=== PATIENT | female | born 1995 | race Caucasian/White ===

== ENCOUNTER 2019-09-11 12:51 | Emergency (ER) | payer SELFPAY ==
[~2019-09-11] VITALS: Ht 170.2 cm; Wt 56.7 kg
[2019-09-11 14:51] VITALS: BP 129/62
[2019-09-11 14:55] LABS: Urine Bacteria FEW /hpf (None Seen); Urine Blood Negative /uL (Negative); Urine Mucus FEW (None Seen); Urine Specific Gravity 1.019 (1.001-1.035); Urine WBC 24 /hpf (0 - 5)
== END 2019-09-11 16:45 | disposition home or self-care (01) ==
LOC: ER 12:56
DX: O26.851 Spotting complicating pregnancy, first trimester (principal); O23.41 Unspecified infection of urinary tract in pregnancy, first trimester; Z3A.11 11 weeks gestation of pregnancy
CPT/HCPCS: 36415; 76801; 81001; 84702

== ENCOUNTER 2021-06-08 22:57 | Emergency (ER) | payer MEDICAID ==
[~2021-06-08] VITALS: Ht 162.6 cm; Wt 75.3 kg
[2021-06-09 00:11] LABS: Basophils # (auto) 0 10 ^3/uL (0-0.2); Basophils % (auto) 0.3 % (0.0-2.0); Eosinophils # (auto) 0 10 ^3/uL (0-0.8); Hematocrit 42.9 % (36.0-46.0); Hemoglobin 14.8 g/dL (12.2-16.2); Lymphocytes # (auto) 1.2 10 ^3/uL (0.4-5.4); Lymphocytes % (auto) 9.9 % (10.0-50.0); Mean Corpuscular Hemoglobin 29.7 pg (28.0-32.0); Mean Corpuscular Hgb Conc. 34.5 g/dL (32.0-36.0); Monocytes # (auto) 0.3 10 ^3/uL (0-1.3); Monocytes % (auto) 2.5 % (0.0-12.0); Neutrophils # (auto) 10.6 10 ^3/uL (1.6-8.6); Neutrophils % (auto) 87.3 % (37.0-80.0); Red Blood Cells 4.99 10^6/uL (4.0-5.20); Red Cell Distribution Width 13.5 % (11.8-14.3); White Blood Cell 12.2 10^3/uL (4.4-10.8)
[2021-06-09] MEDS ORDERED: SODIUM CHLORIDE 0.9% 1,000 ML IV ONE (00:15)
[2021-06-09] MEDS ORDERED: ONDANSETRON HCL 4 MG/2 ML VIAL IV ONE ×2 (00:15→03:00)
[2021-06-09 00:26] LABS: Urine Bacteria MOD /hpf (None Seen); Urine Blood Negative /uL (Negative); Urine Mucus FEW (None Seen); Urine Specific Gravity 1.027 (1.001-1.035); Urine WBC 1 /hpf (0 - 5)
[2021-06-09 00:38] LABS: Salicylate 29.2 mg/dL (2.8-20.0)
[2021-06-09 00:39] LABS: Albumin 4.5 g/dL (3.4-5.0); BUN/Creatinine Ratio 11.8; Calcium 8.7 mg/dL (8.5-10.1); Magnesium 2.2 mg/dL (1.6-2.6); Potassium 3.4 mmol/L (3.5-5.1)
[2021-06-09 00:43] LABS: Bilirubin, Total 0.2 mg/dL (0.2-1.0); Total Protein 8.4 g/dL (6.4-8.2)
[2021-06-09 00:46] LABS: Amphetamine Screen, Urine NEGATIVE (NEGATIVE); Barbiturate Scree,Urine NEGATIVE (NEGATIVE); Benzodiazephine Screen, Urine NEGATIVE (NEGATIVE); Cannabinoid Screen, Urine NEGATIVE (NEGATIVE); Cocaine Screen, Urine NEGATIVE (NEGATIVE); Opiate Scree,Urine NEGATIVE (NEGATIVE); Phencyclidine Screen, Urine NEGATIVE (NEGATIVE)
[2021-06-09 01:00] LABS: Acetaminophen 66.3 ug/mL (10-30)
[2021-06-09] MEDS ORDERED: D5W 5% IV ONE ×2 (02:15→03:15)
[2021-06-09] MEDS ORDERED: ACETYLCYSTEINE IV ONE ×2 (02:15→03:15)
[2021-06-09] MEDS ORDERED: ACETYLCYSTEINE 6GM/30ml (200mg/ml) IV SOLN 30ML IV ONE ×2 (02:30→03:19)
[2021-06-09] MEDS ORDERED: METOCLOPRAMIDE HCL 5MG/ml INJ 2ml VIAL IV ONE (03:45)
[2021-06-09 04:33] LABS: Acetaminophen 31.8 ug/mL (10-30); Salicylate 20.8 mg/dL (2.8-20.0)
[2021-06-09 05:55] VITALS: BP 97/49
[2021-06-09] MEDS ORDERED: D5W 5% IV SCH (07:15)
[2021-06-09] MEDS ORDERED: ACETYLCYSTEINE IV SCH (07:15)
== END 2021-06-09 06:24 | disposition home or self-care (01) ==
LOC: ER 22:57
DX: T39.091A Poisoning by salicylates, accidental (unintentional), initial encounter (principal); F10.129 Alcohol abuse with intoxication, unspecified; F19.10 Other psychoactive substance abuse, uncomplicated; N83.202 Unspecified ovarian cyst, left side; F17.210 Nicotine dependence, cigarettes, uncomplicated; Z88.1 Allergy status to other antibiotic agents; Z88.8 Allergy status to other drugs, medicaments and biological substances; Y92.89 Other specified places as the place of occurrence of the external cause; Y90.6 Blood alcohol level of 120-199 mg/100 ml
CPT/HCPCS: 36415; 74176; 80053; 80307; 80320; 80329; 81001; 82150; 83690; 83735; 84702; 85025; 85049; 96361; 96365; 96366; 96375; 96376; 99284; J0132; J2405; J2765; J7060